=== PATIENT | male | born 1955 | race Caucasian/White ===

== ENCOUNTER → 2017-10-09 10:39 | Outpatient (CLI) | payer OTHER, SELFPAY ==
--- NOTE | 2017-10-09 | DI.RAD.S_ITS ---
PROCEDURE: XR ANKLE LT MIN 3V INDICATIONS: 62 year-old male with left ankle pain, without known injury. TECHNIQUE: 3 views of the ankle were acquired. COMPARISON: None. FINDINGS: Bones: No fractures or dislocations. Ankle mortise is normally aligned. No suspicious bony lesions. Soft tissues: No tibiotalar joint effusion. Achilles tendon appears normal. IMPRESSION: No radiographic explanation for ankle pain. Dictated by: Noel Yoo M.D. on 10/09/2017 at 11:04 Approved by: Noel Yoo M.D. on 10/09/2017 at 11:05
== END ==
PROVIDERS: Family Provider Family Medicine; PCP Family Medicine; Visit Provider Family Medicine
DX: M25.572 Pain in left ankle and joints of left foot (principal)
CPT/HCPCS: 73610

== ENCOUNTER → 2018-06-14 08:02 | Outpatient (CLI) | payer MEDICARE, OTHER, SELFPAY ==
--- NOTE | 2018-06-14 | DI.MRI.S_ITS ---
PROCEDURE: MR ANKLE LT WO CON INDICATIONS: PERONEAL TENDONITUS LEFT LEG TECHNIQUE: Noncontrast sagittal T1 spin echo and T2 fast spin echo with fat saturation, axial proton density fast spin echo and T2 fast spin echo with fat saturation, coronal T1 spin echo and T2 fast spin echo with fat saturation through the ankle/hindfoot. COMPARISON: None. FINDINGS: Image quality: Excellent. Bones and joints: No bone marrow contusions or fractures. No hindfoot coalitions. No osteochondral injuries of the talar dome. No pathologic joint effusions. Medial structures: The posterior tibialis, flexor digitorum longus, and flexor hallucis longus tendons are intact. Fluid is seen adjacent to posterior tibialis tendon suggestive of tenosynovitis. The posterior tibial neurovascular bundle appears normal within the tarsal tunnel, without extrinsic mass effect. There is focal edema involving the deep fibers of the deltoid ligament complex suggestive of sprain. The superficial components appear grossly intact. The spring ligament components (superomedial calcaneonavicular, medioplantar oblique calcaneonavicular, and inferoplantar longitudinal ligaments) are intact. Lateral structures: The anterior talofibular, calcaneofibular, and posterior talofibular ligaments appear intact. More superiorly, the anterior and posterior tibiofibular ligaments appear intact, as is the intermalleolar ligament. The tibiofibular syndesmosis is normal in width at 2 mm or less. The peroneus longus and brevis tendons demonstrate normal location and morphology. However, there is fluid adjacent to the peroneus longus and brevis tendons. Adjacent bony peroneal tubercle and retrotrochlear prominence are normal in size. The sinus tarsi demonstrates normal fatty signal, without edema, fibrosis, or cyst formation. Visualized sinus tarsi components (cervical ligament, interosseous talocalcaneal ligament, roots of the inferior extensor retinaculum) appear normal. The calcaneonavicular and calcaneocuboid components of the bifurcate ligament appear intact. The dorsal calcaneocuboid ligament appears intact. Anterior structures: The tibialis anterior, extensor hallucis longus, and extensor digitorum longus tendons appear intact. The dorsal talonavicular ligament appears intact. Posterior and plantar structures: Achilles tendon is mildly thickened with age-indeterminate intrasubstance signal changes at the distal segment image 13 series 9. Thickening of the medial band plantar fascia, with adjacent soft tissue edema. IMPRESSION: Posterior tibial tenosynovitis. Peroneus longus and brevis tenosynovitis. Distal Achilles tendinopathy, technically age-indeterminate. Medial band plantar fasciitis. T2 hyperintense signal changes involving the deep components of the deltoid ligament complex raises the possibility of acute sprain. Please correlate to clinical exam findings. Dictated by: Bharat Kasper M.D. on 06/14/2018 at 9:23 Approved by: Bharat Kasper M.D. on 06/14/2018 at 9:29
== END ==
PROVIDERS: PCP Family Medicine; Visit Provider Podiatrist
DX: M76.72 Peroneal tendinitis, left leg (principal); M65.862 Other synovitis and tenosynovitis, left lower leg; M72.2 Plantar fascial fibromatosis
CPT/HCPCS: 73721

== ENCOUNTER → 2018-07-06 09:34 | Outpatient (CLI) | payer MEDICARE, OTHER, SELFPAY ==
--- NOTE | 2018-07-06 | DI.MRI.S_ITS ---
PROCEDURE: MR LUMBAR SPINE WO CON INDICATIONS: Low back pain. Left leg radicular pain TECHNIQUE: Noncontrast sagittal T1 spin echo and T2 fast echo, sagittal STIR, axial T1 and T2 fast spin echo through the lumbar spine. In cases with scoliosis, additional coronal T2 fast spin echo may be performed. COMPARISON: [facility], CR, XR LUMBAR SPINE WITH OLBIQUES PLUS FLEXION EXTENSION, 07/02/2018, 11:20. [facility], MR, L-SPINE WITHOUT CONTRAST, 05/25/2015, 14:27. FINDINGS: Image quality: Excellent. Alignment and Curvature: There is trace anterolisthesis of L4 on L5. Bone Marrow: Marrow is of normal overall signal. Mild reactive endplate changes are present at L3-4, L5-S1, minimal L2-L3. No acute vertebral body compression fractures. Spinal Cord: Conus medullaris terminates at the L1 level. Visualized cord demonstrates normal signal and size. Paraspinous Soft Tissues: No paravertebral masses. Discs: Mild desiccation is present throughout the lumbar spine. L1-L2: No disc bulge, spinal stenosis or foraminal narrowing. No interval change. L2-L3: Minimal disc bulge without spinal stenosis or foraminal narrowing. Minimal left foraminal narrowing with facet and ligamentum flavum hypertrophy. Minimal interval progression. Mild epidural lipomatosis. L3-L4: Mild disc bulge with minimal canal narrowing. Severe right foraminal narrowing with nerve root flattening, facet and ligamentum flavum her trephine as well as epidural lipomatosis is present. L4-L5: Mild disc bulge with mild spinal stenosis. Mild bilateral foraminal narrowing is present, left greater than right with facet and ligamentum flavum hypertrophy. No interval change. L5-S1: Mild disc bulge without spinal stenosis. There is significant narrowing through the left subarticular recess and overall mild right foraminal narrowing. Appearance has not significantly changed. Facet hypertrophy is present. Small left anterior facet joint cyst is present, unchanged. IMPRESSION: 1. Multilevel disc bulges, spinal stenosis and foraminal narrowing, demonstrating interval progression most notable at L3-4 as above. Dictated by: Daija Espitia M.D. on 07/08/2018 at 12:57 Approved by: Daija Espitia M.D. on 07/08/2018 at 13:04
== END ==
PROVIDERS: PCP Family Medicine; Visit Provider Physical Medicine & Rehabilitation
DX: M51.16 Intervertebral disc disorders with radiculopathy, lumbar region (principal); M48.061 Spinal stenosis, lumbar region without neurogenic claudication
CPT/HCPCS: 72148

== ENCOUNTER → 2018-08-15 09:27 | Outpatient (CLI) | payer MEDICARE, OTHER, SELFPAY ==
--- NOTE | 2018-08-15 | DI.US.S_ITS ---
PROCEDURE: US ABD AORTA ANEURYSM SCREEN INDICATIONS: ABDOMINAL AORTIC ANEURYSM SCREENING TECHNIQUE: Real time scanning was performed of the aorta and iliac arteries, with image documentation. COMPARISON: None. FINDINGS: Scattered calcified mural plaques noted. Aorta: Proximal aortic diameter measures 2.4 cm. Mid-aorta measures 2.1 cm. Distal aortic diameter is 1.8 cm. Iliac arteries: Right common iliac artery measures up to 1.1 cm. Left common iliac artery measures 1.1 cm. IMPRESSION: No evidence of aneurysm identified. Dictated by: Bharat Kasper M.D. on 08/15/2018 at 10:04 Approved by: Bharat Kasper M.D. on 08/15/2018 at 10:05
== END ==
PROVIDERS: PCP Family Medicine; Visit Provider Family Medicine
DX: Z13.6 Encounter for screening for cardiovascular disorders (principal)
CPT/HCPCS: 76706

== ENCOUNTER → 2019-09-20 12:27 | Outpatient (CLI) | payer MEDICARE, OTHER, SELFPAY ==
--- NOTE | 2019-09-20 | DI.MRI.S_ITS ---
PROCEDURE: MR HEAD/BRAIN WO CON INDICATIONS: Cognitive Impairment, Memory loss TECHNIQUE: Noncontrast axial T1 spin echo, axial T2 fast spin echo, sagittal and axial FLAIR, coronal T2 fast spin echo, axial gradient echo, axial diffusion and ADC through the brain. COMPARISON: None. FINDINGS: Image quality: Excellent. CSF Spaces: Basal cisterns are patent. No extra-axial fluid collections. Ventricles are normal in size and shape. Brain: No intracranial masses or hemorrhage. Li/white matter interface is normal. Brainstem appears normal. Diffusion-weighted images demonstrate no acute ischemic insult. No chronic ischemic insults. Normal intravascular flow voids are present. Skull and face: Calvarium has normal marrow signal. Orbits appear normal. Sinuses: Sinuses and mastoids are clear. IMPRESSION: Minimal microvascular atherosclerotic change in the deep white matter of each hemisphere, there is no sign of mass or hydrocephalus. No prior stroke is identified. Dictated by: Kailash Newell M.D. on 09/22/2019 at 8:13 Approved by: Kailash Newell M.D. on 09/22/2019 at 8:13
== END ==
PROVIDERS: PCP Family Medicine; Referring Provider Family Medicine; Visit Provider Family Medicine
DX: R41.89 Other symptoms and signs involving cognitive functions and awareness (principal); R41.3 Other amnesia
CPT/HCPCS: 70551

== ENCOUNTER → 2019-10-14 13:35 | Outpatient (CLI) | payer MEDICARE, OTHER, SELFPAY ==
--- NOTE | 2019-10-14 13:37 | DI.RAD.S_ITS ---
PROCEDURE: XR SHOULDER RT MIN 2V INDICATIONS: BILATERAL SHOULDER PAIN TECHNIQUE: 3 views of the shoulder were acquired. COMPARISON: [facility], , SHOULDER MINIMUM 2VIEW RIGHT, 01/23/2014, 10:02. FINDINGS: Bones: No acute fractures or dislocations. There are degenerative changes of the right acromioclavicular joint. No suspicious bony lesions. Visualized ribs appear intact. Soft tissues: No suspicious soft tissue calcifications. IMPRESSION: Right shoulder without acute fracture dislocation. Right acromioclavicular osteoarthrosis. Dictated by: Hieu Joseph M.D. on 10/14/2019 at 18:03 Approved by: Hieu Joseph M.D. on 10/14/2019 at 18:03
--- NOTE | 2019-10-14 13:37 | DI.RAD.S_ITS ---
PROCEDURE: XR SHOULDER LT MIN 2V INDICATIONS: BILATERAL SHOULDER PAIN TECHNIQUE: 3 views of the shoulder were acquired. COMPARISON: [facility], , SHOULDER MINIMUM 2VIEW RIGHT, 01/23/2014, 10:02. FINDINGS: Bones: No fractures or dislocations. Degenerative changes of the left acromioclavicular joint. No suspicious bony lesions. Visualized ribs appear intact. Soft tissues: No suspicious soft tissue calcifications. IMPRESSION: Left shoulder without acute fracture or dislocation. Left acromioclavicular osteoarthrosis. Dictated by: Hieu Joseph M.D. on 10/14/2019 at 18:01 Approved by: Hieu Joseph M.D. on 10/14/2019 at 18:03
== END ==
PROVIDERS: PCP Family Medicine; Referring Provider Family Medicine; Visit Provider Family Medicine
DX: M25.511 Pain in right shoulder (principal); M25.512 Pain in left shoulder; M19.011 Primary osteoarthritis, right shoulder; M19.012 Primary osteoarthritis, left shoulder
CPT/HCPCS: 73030

== ENCOUNTER → 2022-06-12 10:54 | Outpatient (ROUT) | payer MEDICARE, OTHER, SELFPAY ==
[2022-06-12 13:07] LABS: Influenza A - CEPHEID Flu A NEGATIVE (NEGATIVE); Influenza B - CEPHEID Flu B NEGATIVE (NEGATIVE); Respiratory Syncytial Virus Negative (Negative)
[2022-06-12 13:16] LABS: COVID-19 CEPHEID 4-PLEX PCR Negative (Negative)
== END ==
PROVIDERS: PCP Family Medicine; Visit Provider Family Medicine
DX: Z11.59 Encounter for screening for other viral diseases (principal); R05.1 Acute cough
CPT/HCPCS: 0241U